=== PATIENT | female | born 1935 | race Hispanic/Latino ===

== ENCOUNTER 2017-08-07 07:28 | Inpatient (IN) | payer MEDICARE, OTHER ==
[~2017-08-07] VITALS: Ht 165.1 cm; Wt 69.4 kg
[2017-08-07] MEDS ORDERED: SODIUM CHLORIDE 0.9% 1000ML 1,000 ML IV STA (07:43)
--- NOTE | 2017-08-07 08:05 | Diagnostic Imaging Report ---
PROCEDURE: CHEST SINGLE (PORTABLE) COMPARISON: None. INDICATIONS: LETHARGIC, ALTERED MENTAL STATUS FINDINGS: LUNGS: No consolidations or edema. Linear atelectasis in the right lung. PLEURA: No effusions or pneumothorax. HEART \T\ MEDIASTINUM: The heart is within normal size-limits. There is calcification within the aorta. BONES \T\ SOFT TISSUES: No acute findings. CONCLUSION: No acute thoracic abnormality. Corbin Elmore D.O. Dictated by: Corbin Elmore D.O. on 08/07/2017 at 8:11 Electronically approved by: Corbin Elmore D.O. on 08/07/2017 at 8:11
[2017-08-07 08:14] LABS: BASOPHILS % 0.3 % (0.0-1.0); EOSINOPHILS # (AUTO) 0.3 (0.0-0.4); EOSINOPHILS % 3.2 % (0.0-6.0); HEMATOCRIT 33.8 % (34.2-44.1); LYMPHOCYTES # (AUTO) 1.6 (1.0-3.2); LYMPHOCYTES % 15.5 % (18.0-39.1); MEAN CORPUSCULAR HEMOGLOBIN 28.6 pg (28-32); MEAN CORPUSCULAR HGB CONC 32.5 g/dL (31-35); MONOCYTES # (AUTO) 0.8 (0.2-0.8); MONOCYTES % 8.2 % (4.4-11.3); NEUTROPHILS # (AUTO) 7.4 (2.1-6.9); NEUTROPHILS % 72.3 % (38.7-80.0); PLATELET COUNT 316 x10e3/uL (140-360); RED BLOOD COUNT 3.84 x10e6/uL (3.6-5.1); RED CELL DISTRIBUTION WIDTH 14.7 % (11.7-14.4)
[2017-08-07] MEDS ORDERED: CARVEDILOL3.125 MG PEG (08:34)
[2017-08-07] MEDS ORDERED: SIMETHICONE80 MG PEG (08:34)
[2017-08-07] MEDS ORDERED: ASCORBIC ACID500 MG PEG (08:34)
[2017-08-07] MEDS ORDERED: ACETAMINOPHEN650 M1 PEG (08:34)
[2017-08-07] MEDS ORDERED: PEPCID20 MG PEG (08:34)
[2017-08-07] MEDS ORDERED: ALBUTEROL0.63 MG/3 INH (08:34)
[2017-08-07] MEDS ORDERED: ULTRAM50 MG PEG (08:34)
[2017-08-07] MEDS ORDERED: REMERON15 M1 PEG (08:34)
[2017-08-07] MEDS ORDERED: ZINC SULFATE220 MG PEG (08:34)
[2017-08-07] MEDS ORDERED: CALCITRIOL0.25 MCG PO (08:34)
[2017-08-07] MEDS ORDERED: RISPERIDONE0.5 MG PEG (08:34)
[2017-08-07] MEDS ORDERED: LORAZEPAM0.5 MG PEG (08:34)
[2017-08-07] MEDS ORDERED: FOLIC ACID1 MG PEG (08:34)
[2017-08-07] MEDS ORDERED: MIRALAX17 GM PEG (08:34)
[2017-08-07] MEDS ORDERED: NAMENDA10 MG PEG (08:34)
[2017-08-07 08:35] LABS: BILIRUBIN,URINE NEGATIVE (NEGATIVE); KETONES,URINE NEGATIVE (NEGATIVE); LEUKOCYTE ESTERASE ,URINE 2+ (NEGATIVE); NITRITE,URINE NEGATIVE (NEGATIVE); URINE UROBILINOGEN 0.2 mg/dL (0.2 - 1)
[2017-08-07 08:37] LABS: CLARITY,URINE SL CLOUDY (CLEAR); COLOR,URINE YELLOW (YELLOW); PROTEIN,URINE DIPSTICK 1+ (NEGATIVE)
[2017-08-07] MEDS ORDERED: LIDOCAINE 5% TOP (08:37)
[2017-08-07 08:43] LABS: EPITHELIAL CELLS,URINE FEW /LPF
[2017-08-07 09:27] LABS: ALANINE AMINOTRANSFERASE 17 IU/L (0-55); ALBUMIN 2.4 g/dL (3.5-5.0); ALBUMIN/GLOBULIN RATIO 0.5 (0.8-2.0); ALKALINE PHOSPHATASE 79 IU/L (40-150); ANION GAP 12.3 mmol/L (8-16); BLOOD UREA NITROGEN 51 mg/dL (7-26); BUN/CREATININE RATIO 67 (6-25); CARBON DIOXIDE 33 mmol/L (22-29); CHLORIDE 89 mmol/L (98-107); CREATININE, SERUM 0.76 mg/dL (0.57-1.11); EST GLOMERULAR FILTRATION RATE > 60 ML/MIN (60-); GLUCOSE 95 mg/dL (74-118); POTASSIUM 5.3 mmol/L (3.5-5.1); SODIUM 129 mmol/L (136-145)
[2017-08-07] MEDS ORDERED: LEVOFLOXACIN 500MG/D5W 100ML 100 ML IV STA (09:49)
[2017-08-07] MEDS: SODIUM CHLORIDE 0.9% 1000ML 1,000 ML IV SCH (10:21)
[2017-08-07 13:00] VITALS: BP 113/51
[2017-08-07 13:19] VITALS: BP 140/56
--- NOTE | 2017-08-07 17:34 | History and Physical ---
HISTORY OF PRESENT ILLNESS: The patient was admitted on 08/07/2017 for dehydration and urinary tract infection. Most of the history was obtained from the chart. The patient is nonverbal at this time and cannot be aroused. Ms. Joanna Pelaez is a patient of . She was in her usual state of health until the patient was noted to have very low blood pressure and low O2. The patient was also having some visual disturbances and fatigue and we admitted the patient for the same. PAST MEDICAL HISTORY: History of hypertension, history of heart disease too. History of dementia. History of G tube placement for surgeries. MEDICATIONS: The patient is on as needed. Ascorbic Acid 500 mg tablets, calcitriol 0.25 mg capsules, carvedilol 3.125 mg twice daily, famotidine 20 mg daily, folic acid 1 mg daily, lorazepam 0.5 q.6 h. as needed, 10 mg b.i.d., MiraLAX 17 gram powder. PEG tube p.r.n. Risperidone 0.5 mg b.i.d. Simethicone, tramadol 15 mg through a PEG tube q.6 h. Zinc sulfate for her skin. The patient also wears a lidocaine patch. ALLERGIES: NO REPORTED ALLERGIES AT THIS TIME, AND WILL ASK THE NURSES FOR THAT, SEE NURSES' REPORT. FAMILY HISTORY: Noncontributory at this time. PHYSICAL EXAMINATION GENERAL: The patient is not responding. She is barely arousable at this time. HEENT: Pupils react to light and accommodation but they are shut. Oropharynx is dry. Mouth is dry. Normocephalic, atraumatic. NECK: No JVD present. CVS: S1 and S2 . Normal rate and rhythm. RESPIRATORY: Good air sounds in lung martin. ABDOMEN: Nontender, nondistended. SKIN: Not examined completely, but no ecchymosis is present. EXTREMITIES: No extremity edema. Upper extremities are having contractures. NEUROLOGIC: Not completely done. The patient is not alert. IMAGING: Initial chest x-ray shows no acute thorax abnormalities. LABORATORY DATA: White count was 10.24, hemoglobin 11, hematocrit 33.8, RDW of 14.7, neutrophil count was 7.4, sodium 129, potassium 5.3, chloride 89, CO2 of 33. BUN 51, creatinine of 0.76, albumin 2.4, globulin ____ and 0.5. Urine did show positive RBCs and WBCs 6-10. Blood was 4+ and urine protein was 1+ and cloudy. ASSESSMENT 1. Urinary tract infection, moderate amount of dehydration. 2. Acute kidney injury. 3. Hyponatremia. PLAN: Will go ahead and give her fluids at 20 mL an hour. Will continue with that. Will also give her some Levaquin 500 mg daily and start her back on her PEG tube feedings. Will put her on Jevity 1.5 at 30 mL an hour to titrate her up to 60, also nutrition consult. Further recommendations will depend on clinical course. We have tried to reach the family today and have not been able to reach family members, but apparently the patient is full code and will discuss with the family her code status. Prognosis is very guarded. Will continue monitoring the patient. Job#: [id number]
[2017-08-07] MEDS ORDERED: LORAZEPAM 0.5 MG TAB PEG PRN (19:30)
[2017-08-07] MEDS ORDERED: ALBUTEROL SULF 0.083% NEB SOLN 3 ML NEB INH PRN (19:30)
[2017-08-07 20:00] VITALS: BP 126/62
[2017-08-07] MEDS: RISPERIDONE 0.5 MG TAB PEG SCH (22:30)
[2017-08-08 00:19] VITALS: BP 152/72
[2017-08-08] MEDS: SODIUM CHLORIDE 0.9% 1000ML 1,000 ML IV SCH (00:47)
[2017-08-08] MEDS ORDERED: ALBUTEROL SULF 0.083% NEB SOLN 3 ML NEB NEB STA (02:35)
[2017-08-08] MEDS ORDERED: IPRATROPIUM BROMIDE 0.02% 2.5 ML NEB NEB ONE (02:35)
--- NOTE | 2017-08-08 03:48 | Diagnostic Imaging Report ---
EXAMINATION: CHEST SINGLE (PORTABLE) INDICATION: Wheezing COMPARISON: 08/07/2017 FINDINGS: TUBES and LINES: None. LUNGS: Lungs are not well inflated. There are bibasilar atelectasis. There is mild prominence of the central pulmonary vasculature, consistent with pulmonary venous congestion. PLEURA: No pleural effusion or pneumothorax. HEART AND MEDIASTINUM: The cardiomediastinal silhouette is unremarkable. There are atherosclerotic calcifications within the aorta. BONES AND SOFT TISSUES: No acute osseous lesion. Soft tissues are unremarkable. UPPER ABDOMEN: No free air under the diaphragm. IMPRESSION: No acute thoracic abnormality. Poor inspiratory effort with evidence of bibasilar atelectasis and central vascular congestion. Signed by: Dr. Suraj Tristan M.D. on 08/08/2017 3:44 AM
[2017-08-08 04:00] VITALS: BP 114/54
[2017-08-08] MEDS ORDERED: FUROSEMIDE INJ 10 MG/ML 4 ML VIAL IV ONE (06:30)
[2017-08-08] MEDS: ALBUTEROL SULF 0.083% NEB SOLN 3 ML NEB INH PRN ×2 (07:55→19:20)
[2017-08-08 08:00] VITALS: BP 123/57
[2017-08-08] MEDS: CARVEDILOL 12.5 MG TAB PEG SCH ×2 (09:00→10:20)
[2017-08-08] MEDS: SIMETHICONE 80 MG CHEW PEG SCH ×2 (10:00→17:50)
[2017-08-08] MEDS: FOLIC ACID 1 MG TAB PEG SCH (10:00)
[2017-08-08] MEDS: CALCITRIOL 0.25 MCG CAP PO SCH (10:00)
[2017-08-08] MEDS: MEMANTINE 10 MG TAB PEG SCH (10:00)
[2017-08-08] MEDS: ZINC SULFATE 220 MG CAP PEG SCH (10:00)
[2017-08-08] MEDS: ASCORBIC ACID 500 MG TAB PEG SCH ×2 (10:00→17:50)
[2017-08-08] MEDS: LEVOFLOXACIN 500MG/D5W 100ML 100 ML IV SCH (10:00)
[2017-08-08 12:00] VITALS: BP 128/57
[2017-08-08 16:00] VITALS: BP 94/45
[2017-08-08 18:03] LABS: BASOPHILS % 0.1 % (0.0-1.0); EOSINOPHILS # (AUTO) 0.2 (0.0-0.4); EOSINOPHILS % 2.1 % (0.0-6.0); HEMATOCRIT 31.7 % (34.2-44.1); HEMOGLOBIN 9.7 g/dL (12.0-16.0); LYMPHOCYTES % 11.2 % (18.0-39.1); MEAN CORPUSCULAR HEMOGLOBIN 28.5 pg (28-32); MEAN CORPUSCULAR HGB CONC 30.6 g/dL (31-35); MEAN CORPUSCULAR VOLUME 93.2 fL (81-99); MONOCYTES # (AUTO) 1.1 (0.2-0.8); MONOCYTES % 11.7 % (4.4-11.3); NEUTROPHILS # (AUTO) 6.7 (2.1-6.9); NEUTROPHILS % 74.6 % (38.7-80.0); PLATELET COUNT 238 x10e3/uL (140-360); RED CELL DISTRIBUTION WIDTH 14.6 % (11.7-14.4)
[2017-08-08 18:39] LABS: ALANINE AMINOTRANSFERASE 15 IU/L (0-55); ALBUMIN/GLOBULIN RATIO 0.5 (0.8-2.0); ALKALINE PHOSPHATASE 59 IU/L (40-150); ANION GAP 10.1 mmol/L (8-16); BLOOD UREA NITROGEN 35 mg/dL (7-26); BUN/CREATININE RATIO 49 (6-25); CALCIUM 8.6 mg/dL (8.4-10.2); CARBON DIOXIDE 31 mmol/L (22-29); CHLORIDE 100 mmol/L (98-107); CREATININE, SERUM 0.72 mg/dL (0.57-1.11); EST GLOMERULAR FILTRATION RATE > 60 ML/MIN (60-); GLUCOSE 95 mg/dL (74-118); POTASSIUM 4.1 mmol/L (3.5-5.1); SODIUM 137 mmol/L (136-145)
[2017-08-08 20:33] VITALS: BP 131/59
[2017-08-08] MEDS: RISPERIDONE 0.5 MG TAB PEG SCH (21:25)
[2017-08-09 00:15] VITALS: BP 136/76
[2017-08-09 04:24] VITALS: BP 135/63
[2017-08-09] MEDS: ALBUTEROL SULF 0.083% NEB SOLN 3 ML NEB INH PRN ×3 (07:35→19:41)
--- NOTE | 2017-08-09 08:27 | Diagnostic Imaging Report ---
EXAMINATION: Chest, CHEST SINGLE (PORTABLE) INDICATION: Chest pain COMPARISON: Portable chest 08/07/2017 FINDINGS: LINES: None. Heart: Normal cardiac silhouette. Vascular: The pulmonary vasculature is within normal limits. Atherosclerotic calcifications of the aortic arch. Mediastinum: No mediastinal, hilar, or axillary mass or lymphadenopathy. Lungs: No parenchymal mass. No focal consolidation. Bibasilar atelectasis. Pleura: No pleural effusion. No pneumothorax. Bones: No acute osseous abnormality. Degenerative changes of the thoracic spine. Soft tissues: Normal. Impression: No acute radiographic abnormality. Signed by: Dr. Cristo Desai M.D. on 08/09/2017 8:24 AM
[2017-08-09] MEDS ORDERED: TRAMADOL HCL 50 MG TAB PO PRN (08:30)
[2017-08-09 08:31] VITALS: BP 98/56
[2017-08-09 08:35] LABS: BASOPHILS % 0.2 % (0.0-1.0); EOSINOPHILS # (AUTO) 0.2 (0.0-0.4); EOSINOPHILS % 1.8 % (0.0-6.0); HEMATOCRIT 31.3 % (34.2-44.1); HEMOGLOBIN 9.7 g/dL (12.0-16.0); MEAN CORPUSCULAR HEMOGLOBIN 28.6 pg (28-32); MEAN CORPUSCULAR VOLUME 92.3 fL (81-99); MONOCYTES # (AUTO) 0.9 (0.2-0.8); MONOCYTES % 10.1 % (4.4-11.3); NEUTROPHILS # (AUTO) 6.4 (2.1-6.9); NEUTROPHILS % 75.5 % (38.7-80.0); PLATELET COUNT 266 x10e3/uL (140-360); RED BLOOD COUNT 3.39 x10e6/uL (3.6-5.1); RED CELL DISTRIBUTION WIDTH 14.6 % (11.7-14.4)
[2017-08-09 09:03] LABS: ANION GAP 10.7 mmol/L (8-16); BLOOD UREA NITROGEN 26 mg/dL (7-26); BUN/CREATININE RATIO 37 (6-25); CARBON DIOXIDE 34 mmol/L (22-29); CHLORIDE 99 mmol/L (98-107); EST GLOMERULAR FILTRATION RATE > 60 ML/MIN (60-); GLUCOSE 111 mg/dL (74-118); POTASSIUM 3.7 mmol/L (3.5-5.1); SODIUM 140 mmol/L (136-145)
[2017-08-09] MEDS: MEMANTINE 10 MG TAB PEG SCH (10:00)
[2017-08-09] MEDS: ASCORBIC ACID 500 MG TAB PEG SCH ×2 (10:00→18:53)
[2017-08-09] MEDS: CALCITRIOL 0.25 MCG CAP PO SCH (10:00)
[2017-08-09] MEDS: CARVEDILOL 12.5 MG TAB PEG SCH ×2 (10:00→18:53)
[2017-08-09] MEDS: FOLIC ACID 1 MG TAB PEG SCH (10:00)
[2017-08-09] MEDS: LEVOFLOXACIN 500MG/D5W 100ML 100 ML IV SCH (10:00)
[2017-08-09] MEDS: SIMETHICONE 80 MG CHEW PEG SCH ×2 (10:00→18:53)
[2017-08-09] MEDS: ZINC SULFATE 220 MG CAP PEG SCH (10:00)
[2017-08-09] MEDS: TRAMADOL HCL 50 MG TAB PEG PRN ×2 (11:30→21:05)
[2017-08-09 12:38] VITALS: BP 132/63
[2017-08-09 16:50] VITALS: BP 129/61
[2017-08-09 20:00] VITALS: BP 117/56
[2017-08-09] MEDS: RISPERIDONE 0.5 MG TAB PEG SCH (21:05)
[2017-08-10 00:59] VITALS: BP 126/76
[2017-08-10] MEDS ORDERED: CITRATE OF MAGNESIA 300ML BOTTLE PO ONE (01:00)
[2017-08-10] MEDS: POLYETHYLENE GLYCOL 3350 17 GM PACK PEG PRN (03:47)
[2017-08-10] MEDS: TRAMADOL HCL 50 MG TAB PEG PRN (03:47)
[2017-08-10 04:00] VITALS: BP 136/78
[2017-08-10 07:25] LABS: BASOPHILS % 0.1 % (0.0-1.0); EOSINOPHILS # (AUTO) 0.3 (0.0-0.4); EOSINOPHILS % 3.6 % (0.0-6.0); HEMATOCRIT 28.8 % (34.2-44.1); LYMPHOCYTES # (AUTO) 1.3 (1.0-3.2); LYMPHOCYTES % 14.9 % (18.0-39.1); MEAN CORPUSCULAR HGB CONC 31.3 g/dL (31-35); MEAN CORPUSCULAR VOLUME 89.7 fL (81-99); MONOCYTES # (AUTO) 1.1 (0.2-0.8); MONOCYTES % 12.4 % (4.4-11.3); NEUTROPHILS # (AUTO) 6.1 (2.1-6.9); NEUTROPHILS % 68.4 % (38.7-80.0); PLATELET COUNT 244 x10e3/uL (140-360); RED BLOOD COUNT 3.21 x10e6/uL (3.6-5.1); RED CELL DISTRIBUTION WIDTH 14.4 % (11.7-14.4)
[2017-08-10 07:56] VITALS: BP 119/56
[2017-08-10 08:04] LABS: ALANINE AMINOTRANSFERASE 17 IU/L (0-55); ALBUMIN 2.1 g/dL (3.5-5.0); ALBUMIN/GLOBULIN RATIO 0.5 (0.8-2.0); ALKALINE PHOSPHATASE 72 IU/L (40-150); ANION GAP 10.1 mmol/L (8-16); BLOOD UREA NITROGEN 25 mg/dL (7-26); BUN/CREATININE RATIO 35 (6-25); CALCIUM 8.9 mg/dL (8.4-10.2); CARBON DIOXIDE 33 mmol/L (22-29); CHLORIDE 98 mmol/L (98-107); CREATININE, SERUM 0.72 mg/dL (0.57-1.11); EST GLOMERULAR FILTRATION RATE > 60 ML/MIN (60-); GLUCOSE 121 mg/dL (74-118); POTASSIUM 4.1 mmol/L (3.5-5.1); SODIUM 137 mmol/L (136-145)
[2017-08-10] MEDS: MEMANTINE 10 MG TAB PEG SCH (10:38)
[2017-08-10] MEDS: SIMETHICONE 80 MG CHEW PEG SCH ×2 (10:38→17:10)
[2017-08-10] MEDS: ASCORBIC ACID 500 MG TAB PEG SCH ×2 (10:38→17:10)
[2017-08-10] MEDS: CARVEDILOL 12.5 MG TAB PEG SCH ×2 (10:38→16:42)
[2017-08-10] MEDS: ZINC SULFATE 220 MG CAP PEG SCH (10:38)
[2017-08-10] MEDS: FOLIC ACID 1 MG TAB PEG SCH (10:38)
[2017-08-10] MEDS: LEVOFLOXACIN 500MG/D5W 100ML 100 ML IV SCH (10:39)
[2017-08-10] MEDS: CALCITRIOL 0.25 MCG CAP PO SCH (10:39)
[2017-08-10 12:19] VITALS: BP 108/57
[2017-08-10 17:04] VITALS: BP 101/62
[2017-08-10 20:00] VITALS: BP 130/64
[2017-08-10] MEDS ORDERED: SODIUM CHLORIDE 0.9% 100 ML 100 ML ONE (21:34)
[2017-08-10] MEDS: RISPERIDONE 0.5 MG TAB PEG SCH (21:45)
[2017-08-10] MEDS: MEROPENEM 1GRAM 1 GM in SODIUM CHLORIDE 0.9% 100 ML 100 ML IV SCH (21:45)
[2017-08-10] MEDS ORDERED: SODIUM CHLORIDE 0.9% 250ML 250 ML ONE (21:59)
[2017-08-11] VITALS: BP 119/68
[2017-08-11 04:00] VITALS: BP 162/85
[2017-08-11] MEDS: MEROPENEM 1GRAM 1 GM in SODIUM CHLORIDE 0.9% 100 ML 100 ML IV SCH ×3 (05:51→22:00)
[2017-08-11 08:29] VITALS: BP 127/67
[2017-08-11] MEDS: FOLIC ACID 1 MG TAB PEG SCH (09:45)
[2017-08-11] MEDS: SIMETHICONE 80 MG CHEW PEG SCH ×2 (09:45→18:16)
[2017-08-11] MEDS: MEMANTINE 10 MG TAB PEG SCH (09:45)
[2017-08-11] MEDS: CALCITRIOL 0.25 MCG CAP PO SCH (09:45)
[2017-08-11] MEDS: ASCORBIC ACID 500 MG TAB PEG SCH ×2 (09:45→18:16)
[2017-08-11] MEDS: ZINC SULFATE 220 MG CAP PEG SCH (09:45)
[2017-08-11] MEDS: CARVEDILOL 12.5 MG TAB PEG SCH ×2 (09:45→18:17)
[2017-08-11 12:10] VITALS: BP 168/74
[2017-08-11] MEDS ORDERED: ALBUTEROL/IPRATROPIUM 3 ML NEB NEB PRN (12:30)
--- NOTE | 2017-08-11 13:50 | Diagnostic Imaging Report ---
PROCEDURE: A single AP view of the chest. COMPARISON: Chest portable 08/09/2017. Portable chest 08/07/2017. INDICATIONS: AUDIBLE WHEEZING FINDINGS: Lines/tubes: None. Lungs: No focal consolidation. No parenchymal mass. Low lung volumes are present bilaterally.. Pleura: There is no pleural effusion or pneumothorax. Heart and mediastinum: The heart and the mediastinum are unremarkable. Atherosclerotic calcifications. Bones: No acute bony abnormality. Degenerative changes of the thoracic spine. IMPRESSION: No acute radiographic abnormality. Dictated by: Cristo Desai M.D. on 08/11/2017 at 13:57 Electronically approved by: Cristo Desai M.D. on 08/11/2017 at 13:57
[2017-08-11] MEDS: POLYETHYLENE GLYCOL 3350 17 GM PACK PEG PRN (15:14)
[2017-08-11] MEDS: TRAMADOL HCL 50 MG TAB PEG PRN (15:15)
[2017-08-11 16:28] VITALS: BP 175/76
[2017-08-11 20:32] VITALS: BP 143/65
[2017-08-11] MEDS: RISPERIDONE 0.5 MG TAB PEG SCH (21:00)
[2017-08-12 01:08] VITALS: BP 144/64
[2017-08-12 04:57] VITALS: BP 143/63
[2017-08-12] MEDS: MEROPENEM 1GRAM 1 GM in SODIUM CHLORIDE 0.9% 100 ML 100 ML IV SCH ×2 (06:00→14:01)
[2017-08-12 06:55] LABS: BASOPHILS % 0.1 % (0.0-1.0); EOSINOPHILS # (AUTO) 0.4 (0.0-0.4); EOSINOPHILS % 5.4 % (0.0-6.0); HEMATOCRIT 30.6 % (34.2-44.1); HEMOGLOBIN 9.8 g/dL (12.0-16.0); LYMPHOCYTES # (AUTO) 1.1 (1.0-3.2); LYMPHOCYTES % 14.7 % (18.0-39.1); MEAN CORPUSCULAR HEMOGLOBIN 28.5 pg (28-32); MONOCYTES # (AUTO) 0.9 (0.2-0.8); MONOCYTES % 11.3 % (4.4-11.3); NEUTROPHILS # (AUTO) 5.1 (2.1-6.9); NEUTROPHILS % 68.1 % (38.7-80.0); PLATELET COUNT 223 x10e3/uL (140-360); RED BLOOD COUNT 3.44 x10e6/uL (3.6-5.1); RED CELL DISTRIBUTION WIDTH 14.3 % (11.7-14.4)
[2017-08-12 07:14] LABS: ANION GAP 8.2 mmol/L (8-16); BLOOD UREA NITROGEN 20 mg/dL (7-26); BUN/CREATININE RATIO 29 (6-25); CALCIUM 8.8 mg/dL (8.4-10.2); CARBON DIOXIDE 33 mmol/L (22-29); CHLORIDE 97 mmol/L (98-107); CREATININE, SERUM 0.68 mg/dL (0.57-1.11); EST GLOMERULAR FILTRATION RATE > 60 ML/MIN (60-); GLUCOSE 111 mg/dL (74-118); POTASSIUM 4.2 mmol/L (3.5-5.1); SODIUM 134 mmol/L (136-145)
[2017-08-12 08:00] VITALS: BP 182/72
[2017-08-12] MEDS: CALCITRIOL 0.25 MCG CAP PO SCH (09:57)
[2017-08-12] MEDS: ASCORBIC ACID 500 MG TAB PEG SCH ×2 (09:57→17:05)
[2017-08-12] MEDS: ZINC SULFATE 220 MG CAP PEG SCH (09:57)
[2017-08-12] MEDS: MEMANTINE 10 MG TAB PEG SCH (09:57)
[2017-08-12] MEDS: FOLIC ACID 1 MG TAB PEG SCH (09:57)
[2017-08-12] MEDS: CARVEDILOL 12.5 MG TAB PEG SCH ×2 (09:57→17:06)
[2017-08-12] MEDS: SIMETHICONE 80 MG CHEW PEG SCH ×2 (09:57→17:05)
[2017-08-12 12:00] VITALS: BP 133/61
[2017-08-12] MEDS ORDERED: SODIUM CHLORIDE 0.9% 250ML 250 ML ONE (13:33)
[2017-08-12 16:00] VITALS: BP 143/70
[2017-08-12 20:00] VITALS: BP 134/63
--- NOTE | 2017-09-12 02:18 | Discharge Summary ---
The patient was in the hospital for acute mental status changes. The patient has a history of dementia. Also, has a history of PEG tube placement for food. The patient was restarted on her home medication while in the hospital of tramadol, PEG tube, memantine, zinc, carvedilol, Risperidone, and lorazepam. The patient had one event of respiratory distress where rapid was called. The patient was given high-flow oxygen, and was also done. Chest x-ray was ordered. The patient had a UTI, and restarted back on her Levaquin. For respiratory distress, oxygen was given. She was given a dose of IV Lasix in the morning, which made her respiratory distress much better. With urosepsis, we found gram-negative rods initially. Acidosis resolved with bicarb. Pain management was also done. We increased the Jevity to maximize her feeds. Urine culture grew out Morganella. We changed the antibiotic to Merrem, and continued home medications. The patient was doing better. Dementia advice. The patient was back on memantine. Urosepsis was better, and the patient was discharged back to her snf. FINAL DIAGNOSES 1. Urosepsis. 2. Hypertension. 3. Dementia. 4. Respiratory distress. 5. Volume overload. 6. Debility. For further information, look in the chart. The patient will be transferred back to her snf. For information about the discharge medicines, look at the medical reconciliation sheet. PATRICK MISHRA MD Job#: [id number] PR
== END 2017-08-12 20:18 | DRG 871 ==
LOC: ER 07:28 → MED/SURG3 11:21 → EDBD 11:21
PROVIDERS: ADMIT Family Medicine; ATTEND Family Medicine
DX: A41.9 Sepsis, unspecified organism (principal); G93.41 Metabolic encephalopathy; N17.9 Acute kidney failure, unspecified; N39.0 Urinary tract infection, site not specified; E87.2 Acidosis; E87.1 Hypo-osmolality and hyponatremia; I11.0 Hypertensive heart disease with heart failure; I50.9 Heart failure, unspecified; E86.0 Dehydration; I10 Essential (primary) hypertension; F03.90 Unspecified dementia, unspecified severity, without behavioral disturbance, psychotic disturbance, mood disturbance, and anxiety; R21 Rash and other nonspecific skin eruption; R06.00 Dyspnea, unspecified; B96.89 Other specified bacterial agents as the cause of diseases classified elsewhere
CPT/HCPCS: 36415; 71010; 80048; 80053; 81001; 85025; 87040; 87086; 87186; 93005; 94640; 96367; 99284; J1940; J1956; J2185; J7030; J7050